=== PATIENT | male | born 1960 | race Caucasian/White ===

== ENCOUNTER 2024-03-18 09:33 | Inpatient (IN) | payer OTHER ==
[2024-03-18] MEDS ORDERED: Haloperidol Lactate Inj. 5 MG/ML Injection IM PRN ×2 (11:10→11:20)
[2024-03-18] MEDS ORDERED: RisperiDONE 1 MG Tab PO PRN (11:10)
[2024-03-18] MEDS ORDERED: Zolpidem Tartrate 5 MG Tab PO PRN (11:10)
[2024-03-18] MEDS ORDERED: DiphenhydrAMINE HCl 50 MG Cap PO PRN (11:15)
[2024-03-18] MEDS ORDERED: Acetaminophen 325 MG TABLET PO PRN (11:15)
[2024-03-18] MEDS ORDERED: DiphenhydrAMINE HCl 50 MG/ML 1ML Vial IM PRN ×2 (11:15)
[2024-03-18] MEDS ORDERED: OLANZapine ODT 10 MG Tab MM PRN ×2 (11:15)
[2024-03-18] MEDS ORDERED: Aluminum Hydroxide 320MG/5ML 473 ML PO PRN (11:15)
[2024-03-18] MEDS ORDERED: Melatonin 3 MG Tab PO PRN (11:20)
[2024-03-18] MEDS ORDERED: LORazepam 2 MG Tab PO PRN ×2 (11:20)
[2024-03-18] MEDS ORDERED: Haloperidol 5 MG Tab PO PRN (11:20)
[2024-03-18] MEDS ORDERED: LORazepam 2 MG/ML 1ML Injection IM PRN ×2 (11:20)
[2024-03-18] MEDS ORDERED: Ibuprofen 600 MG Tab PO PRN (11:20)
[2024-03-18 12:26] VITALS: BP 149/75
[2024-03-18] MEDS ORDERED: TOPIRAMATE ER25 M1 PO (12:32)
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
--- NOTE | 2024-03-18 18:30 | NUR ---
'S PHONE NUMBER GYPSY STANLEY: [phone]
[2024-03-18] MEDS ORDERED: OLANZapine 10 MG Tab PO SCH (21:00)
[2024-03-19 08:53] VITALS: BP 136/68
[2024-03-19] MEDS ORDERED: Folic Acid 1 MG TAB PO SCH (09:00)
[2024-03-19] MEDS ORDERED: Thiamine HCl 100 MG Tab PO SCH (09:00)
[2024-03-19] MEDS ORDERED: Multivitamins 1 Tab PO SCH (09:00)
--- NOTE | 2024-03-19 11:11 | NUR ---
AT 1025 PT COMPLAINED OF BEING MORE ANXIOUS AND FEELS LIKE A MIGRAINE MY BE COMING ON. ASKED FORMEDICATION TO HELP HIM. MASS SCORE OF 13. GIVEN ATIVAN [address] STRONG HERE AND SPOKE WITH PATIENT. ALSO PATIENT USED [employer] BOARD TO SAND DOWN HIS TOENAIL ON LARGE TOE ON RIGHT FOOT. WILL CONTINUE TO MONITOR.
--- NOTE | 2024-03-19 16:07 | NUR ---
PT FELT HE HAD GLASS IN HIS RIGHT FOOT ON THE BOTTOM AREA UNDER THE LAST TO TOES WHEN HE WALKED ON IT. STATED THAT HE HAD WALKED ON GLASS AND HE THINKS THERE IS SOME IN THERE. HE DOES NOT KNOW WHEN HE WAS ON THE GLASS. THERE IS 2 TINY DOTS IN THE AREA THAT LOOK LIKE HE MAY HAVE STEPPED ON SOMETHING LIKE A STAPLE. THERE IS NO REDNESS OR SWELLING PRESENT. GIVEN SOMESLIDES TO WALK WITH. WILL CONTINUE TO MONITOR.
--- NOTE | 2024-03-19 16:45 | NUR ---
SHIFT SUMMARY HAS BEEN UP READING A BOOK OR JOURNALING. NO OTHER COMPLAINTS OF PAIN TO FOOT SINCE RECEIVING SLIDE SHOES. LISTENING TO MUSIC WITH A HEAD SET NOW. MOOD IS CALM AND QUITE. ATIVAN HAS BEEN HELPFUL NO COMPLAINT OF A MIGRAINE. WILL CONTINUE TO MONITOR
--- NOTE | 2024-03-19 18:00 | NUR ---
COMPLAINT OF HEART BURN. GIVEN ALUMINUM HYDROXIDE 15 MLS AND TOLD NOT TO DRINK WATER FOR A HALF HOUR. TO COME FOR VISIT AT ANY TIME. WILL CONTINUE TO MONITOR.
[2024-03-19] MEDS ORDERED: ClonazePAM 0.5 MG Tab PO SCH (21:00)
[2024-03-19] MEDS ORDERED: OLANZapine 10 MG Tab PO SCH (21:00)
--- NOTE | 2024-03-20 04:43 | NUR ---
Patient advised AT 4:40 THAT HE FEELS LIKE HE HAS GLASS IN MULTIPLE SPOTS ON THE LEFT HEEL. I USED A SANITARY WIPE AND FOUND TWO SMALL SPOTS THAT MAY MAVE A SLIVER OR SOMETHING IN IT.
--- NOTE | 2024-03-20 06:22 | NUR ---
JANELLE TOOK A SHOWER AT 6:22 AND WAS PROVIDED TWO TOWELS AND 3XL SHIRT AND 2 XL PANTS.
--- NOTE | 2024-03-20 08:24 | NUR ---
0815 PT CAME TO SAY THAT HE "PEED" BLOOD IN THE TOILET. CHECKED AND BLOOD ON TOILET SEAT AND HAD HIM RE-URINATE SOME MORE IN CLEAR TOILET. IT WAS RED AND HAAD A FOUL ODOR PRESENT. WILL LET DR JARA KNOW ON ROUNDS.DID NOT COMPLAIN OF PAIN.
[2024-03-20 08:40] VITALS: BP 135/71
[2024-03-20] MEDS ORDERED: Thiamine HCl 100 MG Tab PO SCH (09:00)
[2024-03-20] MEDS ORDERED: Folic Acid 1 MG TAB PO SCH (09:00)
[2024-03-20] MEDS ORDERED: Multivitamins 1 Tab PO SCH (09:00)
--- NOTE | 2024-03-20 11:06 | NUR ---
DR NORMAN NOTIFIED OF PATIENTS BLOOD IN THE URINE. ORDER FOR CONSULT WITH HOPITALIST. DR KIRKLAND ON WAY OVER TO SEE THE PATIENT NOW. URINE SAMPLE COLLECTED.
[2024-03-20] MEDS ORDERED: Cephalexin Monohydrate 500 MG Cap PO SCH (12:00)
[2024-03-20 12:01] LABS: Source, Urine Clean Catch
[2024-03-20 12:04] LABS: Bilirubin, Urine Neg (Neg); Blood, Urine 4+ (Neg); Glucose Qualitative, Urine Neg (Neg); Ketones, Urine Neg (Neg); Leukocyte Esterase, Urine 1+ (Neg); Nitrite, Urine Neg (Neg); Protein, Urine 1+ (Neg); Urobilinogen, Urine NORM (Normal)
[2024-03-20 12:44] LABS: Appearance, Urine Hazy (Clear); Color, Urine Yellow (P-Yellow)
[2024-03-20 12:45] LABS: Bacteria Few /hpf; Squamous Epithelial Cells Few /hpf (Few)
[2024-03-20 13:55] LABS: Bun/Creatinine Ratio 14.4 (12.0-20.0); Calcium, Blood 9.4 mg/dL (8.5-10.1); Creatinine, Blood 0.83 mg/dL (0.60-1.20); Potassium, Blood 3.9 mmol/L (3.5-5.5)
--- NOTE | 2024-03-20 14:35 | NUR ---
DR DARNELL NOTIFIED OF URINALIYSIS/UTI. HE SAID HE SEEN THE LAB AND STARTED THE PATIENT ON ANTIBIOTIC. FIRST DOSE OF MED WAS GIVEN.
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
--- NOTE | 2024-03-20 17:05 | NUR ---
PT ABLE TO URINATE AT THIS TIME. GIVEN TYLENOL 650MG PO FOR LOW BACK PAIN TO RIGHT SIDE 02/02. PT HAS SNACKS TO EAT AND SAID HE MAY NOT WANT TO EAT HIS DINNER. TOLD HIM THAT IT IS OK LONG HE EATS SOMETHING. HE WENT INTO THE DINING AREA FOR DINNER.
--- NOTE | 2024-03-20 17:44 | NUR ---
SHIFT SUMMARY PT HAS BEEN UP PACING IN THE HALLS SINCE TAKING TYLENOL, BUT STATES PAIN IS AT 8/10 NOW. PT WANTS TO HAVE DEMEROL. IT WAS EXPLAINED THAT WE DO NOT GIVE THOSE KIND MEDICSATIONS HERE. WAS OFFERED ICE PACK WRAPPED IN A TOWEL. HE ACCEPTED. WILL CONTINUE TO MONITOR. VISIT WITH WENT WELL. DENIES AVH AND SI.
[2024-03-20 20:44] VITALS: BP 111/81
[2024-03-21 08:39] VITALS: BP 135/76
[2024-03-21] MEDS ORDERED: ClonazePAM 0.5 MG Tab PO PRN (08:50)
[2024-03-21] MEDS ORDERED: Polyethylene Glycol 3350 17 gm PO PRN (08:50)
[2024-03-21] MEDS ORDERED: Tamsulosin HCl 0.4 MG Cap PO SCH (09:00)
--- NOTE | 2024-03-21 09:00 | NUR ---
PT REPORTS TO THIS NURSE R SIDED PAIN. PT UNSURE OF BOWEL PAINS R/T NO BM X4 DAYS. PROVIDER ORDERED MIRLAX, GIVEN.
--- NOTE | 2024-03-21 11:35 | NUR ---
SPOKE W/ DR NORMAN AND ADVISED TO CALL DR. DARNELL REGARDING PT R FLANK/ ABD PAIN. DISCUSSED PT CONCERNS W/ DR. DARNELL AND HE INFORMED HE WILL ORDER CT. I INFORMED THAT WE ARE UNABLE TO TRANSPORT PTS TO AND FROM HOSPITAL. DR. DARNELL HAS AGREED TO USE OF MIRLAX IN HOPES OF BM AND IF UNSUCCESSFUL, WE WILL MOVE FORWARD W/ PT SCAN IN ER SERVICES. I HAVE REQUESTED PRUNE JUICE FROM DIETARY AND WILL HAVE [facility] MARKETING CAMPAIGN ANALYST. PT REPORTS IN THE PAST VERY SUCCESSFUL AND RELIEVED TO KNOW ACTIONS WILL HAPPEN.
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
[2024-03-21 19:55] VITALS: BP 152/80
[2024-03-21] MEDS ORDERED: Docusate Sodium/Senna 1 Tab PO SCH (21:00)
--- NOTE | 2024-03-21 22:50 | NUR ---
PATIENT STATES THAT HE HAD A GOOD BOWEL MOVEMENT. NO VISUAL BY STAFF. HE AGREED TO TAKE COLACE AND MIRALAX "TO KEEP IT GOING". ADVISED TO LET STAFF KNOW WHEN HE GOES, OR TO SHOW STAFF.
[2024-03-22 08:17] VITALS: BP 157/84
--- NOTE | 2024-03-22 10:01 | NUR ---
PROVIDER CONSULT DR. NORMAN V/O FOR MEDICAL CONSULT. NEXT IN LINE PER ER; DR. ROSALES PROVIDER CALLED AT THIS TIME AND GIVEN CONSULT/ PT INFORMATION
--- NOTE | 2024-03-22 11:47 | NUR ---
DR. RODRIGUEZ COVERING RECEIVED CALL FROM DR. ROSALES REPORTING THAT DR. RODRIGUEZ IS COVERING THIS PT
--- NOTE | 2024-03-22 11:55 | NUR ---
SPOKE W/ DR. RODRIGUEZ. SHE REPORTS WILL COME ASSESS PT THIS AFTERNOON SINCE NOT ACUTE DISTRESS AT THIS TIME.
[2024-03-22] MEDS ORDERED: OxyCODONE 5 mg/Acetamin 325 mg TABLET PO PRN (12:00)
--- NOTE | 2024-03-22 17:09 | NUR ---
Pt stated that his mood was "good" and presents as euthymic with congruent affect. He denies SI, HI, AVH. Eye contact is good. Pt denies anxiety and endorse rib and back pain that ranged from 3/10w at time of morning assessment to as high as 8/10w in the early afternoon. Pt received PRN APAP and ibuprofen at 1257 which brought the pain level down to 4/10w. Pt was seen by the hospitalist concerning his ongoing pain. Hospitalist ordered Percoset 5/325 q4h PRN for severe pain. Patient spent much of the day in the sensory room with headphones. He did get a visit from his spouse, which seemed to go well.
[2024-03-22 20:27] VITALS: BP 126/72
--- NOTE | 2024-03-23 00:03 | NUR ---
Patient talking to this RN discussing a mindfullness exercise where one part involves audibly voicing your thoughts and beliefs over and over. He states that he thinks this is why he was admitted, because of "talking out loud and hearing voices." When "all I'm doing is voicing my thoughts and beliefs so I can keep things straight."
--- NOTE | 2024-03-23 02:55 | NUR ---
Patient OOB approximately every 30 minutes mumbling about the prior mentioned mindfulness exercise. "That is me. I just voice my thoughts." When encouraged to go back and try to get more sleep, he complained of abdominal and headache pain requiring Tylenol and Ibuprophen. When it was time, this RN agreed to give him the medications, and when the patient was to receive them, he stated he only had pain of a 1-2/10, and that it "rockets up" to a 10 when he gets up to take a walk or use the bathroom. Patient got up and said "ok. Now it's a 10. Medications given per order. Patient was encouraged to stay in bed and try to sleep as he had lots of activities to participate in in the morning. will continue close monitoring.
--- NOTE | 2024-03-23 04:11 | NUR ---
Patient up and down most of night. Finally fell asleep around 0330. Patient c/o abd and headache pain at HS and multiple times through night. Very forgetful as he would repeat the same things multiple times each time he would approach the desk. Please see nurses notes for further information regarding MR Conn's obsession with "mindfullness exercise".
[2024-03-23 09:10] VITALS: BP 129/65
--- NOTE | 2024-03-23 11:28 | NUR ---
Appointments Scheduled Hospital Follow-up Apt Scheduled for SaturdayMarch 25, at [address] Mancini. Requested to send over Discharge Summary as soon as able so Dr can start reviewing them. Scheduled New Patient apt for pt. with Dr. Vasquez on May 02 @ 11:20am Pt will also [facility].
[2024-03-23] MEDS ORDERED: CEPH500 PO (11:35)
[2024-03-23] MEDS ORDERED: MELA3 PO (11:36)
[2024-03-23] MEDS ORDERED: OLAN20 MM (11:37)
[2024-03-23] MEDS ORDERED: TAMS.4ER PO (11:38)
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
--- NOTE | 2024-03-23 13:32 | NUR ---
Pt discharged at 1320 had no belongings to be given. Form signed and patient left with Wes Conn.
== END 2024-03-23 13:17 | disposition home or self-care (01) | DRG 885 ==
LOC: BHU 09:33
PROVIDERS: Internal Medicine; ADMIT Student in an Organized Health Care Education/Training Program
DX: F20.0 Paranoid schizophrenia (principal); N39.0 Urinary tract infection, site not specified; R31.0 Gross hematuria; M79.672 Pain in left foot; M79.671 Pain in right foot; E87.6 Hypokalemia; B96.1 Klebsiella pneumoniae [K. pneumoniae] as the cause of diseases classified elsewhere; R07.81 Pleurodynia; K59.00 Constipation, unspecified; F12.90 Cannabis use, unspecified, uncomplicated; F41.9 Anxiety disorder, unspecified; Z79.899 Other long term (current) drug therapy
CPT/HCPCS: 36415; 80048; 81001; 87077; 87086; 87186; A9270

== ENCOUNTER → 2024-04-19 | Outpatient (CLI) | payer OTHER ==
[~2024-04-19] MED LIST: CEPH500 PO; MELA3 PO; OLAN20 MM; TAMS.4ER PO; TOPIRAMATE ER25 M1 PO
== END | disposition home or self-care (01) ==
LOC: LAB 08:05 → LAB SHORT 08:05
DX: R31.9 Hematuria, unspecified (principal)
CPT/HCPCS: 87077; 87086; 87186

== ENCOUNTER → 2024-10-05 | Outpatient (CLI) | payer OTHER ==
[2024-10-05 13:19] LABS: BASOPHILS ABSOLUTE AUTO 0.04 K/mm3 (0.00-0.23); BASOPHILS PERCENT AUTO 1 % (0-2); EOSINOPHILS ABSOLUTE AUTO 0.19 K/mm3 (0.00-0.68); EOSINOPHILS PERCENT AUTO 3 % (0-6); Hematocrit 46.5 % (37.0-53.0); Hemoglobin 16.1 g/dL (13.5-17.5); IMMATURE GRAN ABSOLUTE AUTO 0.03 K/mm3 (0.00-0.10); IMMATURE GRAN PERCENT AUTO 1 % (0-1); LYMPHOCYTES ABSOLUTE AUTO 2.03 K/mm3 (0.84-5.20); LYMPHOCYTES PERCENT AUTO 32 % (21-46); MONOCYTES ABSOLUTE AUTO 0.45 K/mm3 (0.16-1.47); MONOCYTES PERCENT AUTO 7 % (4-13); Mean Corpuscular HGB 30.3 pg (26.0-34.0); Mean Corpuscular HGB Conc 34.6 g/dL (31.5-36.5); Mean Corpuscular Volume 88 fL (80-100); Mean Platelet Volume 9.9 fL (9.1-12.4); NEUTROPHILS ABSOLUTE AUTO 3.65 K/mm3 (1.96-9.15); NEUTROPHILS PERCENT AUTO 57 % (41-73); Platelet Count 241 K/mm3 (150-400); RDW Coefficient Variation 12.6 % (11.7-14.2); RDW Standard Deviation 40.1 fL (35.1-46.3); Red Blood Cell Count 5.31 M/mm3 (4.30-5.90); White Blood Cell Count 6.39 K/mm3 (4.00-11.30)
[2024-10-05 13:39] LABS: PSA, %Free 15.3 %; PSA, Free 0.331 ng/mL
[2024-10-05 14:09] LABS: Alanine Aminotransfer (ALT/SGP 23 U/L (12-78); Albumin/Globulin Ratio 1.1 (0.8-1.8); Alk Phos 60 U/L (50-136); Anion Gap 10 mmol/L (3-11); Aspartate Aminotrans (AST/SGOT 13 U/L (12-37); Bilirubin, Direct <0.1 mg/dL (0.0-0.3); Bilirubin, Indirect Unable to Calculate mg/dL (0.1-0.7); Bilirubin, Total 0.3 mg/dL (0.1-1.0); Blood Urea Nitrogen 17 mg/dL (8-24); Bun/Creatinine Ratio 22.4 (12.0-20.0); CO2, Blood 22 mmol/L (21-32); Calcium, Blood 9.2 mg/dL (8.5-10.1); Chloride, Blood 111 mmol/L (98-108); Creatinine, Blood 0.76 mg/dL (0.60-1.20); Globulin, Blood 3.6 g/dL (2.2-4.0); Glomerular Filtration Rate 102 (60-); Glucose, Blood 120 mg/dL (70-99); Potassium, Blood 4.1 mmol/L (3.5-5.5); Sodium, Blood 139 mmol/L (136-145); Total Protein, Blood 7.6 g/dL (6.4-8.2)
[2024-10-05 14:11] LABS: CHOL/HDL RATIO 4.4; Cholesterol 237 mg/dL (50-200); HDL Cholesterol 54 mg/dL (>39); Iron Serum 67 ug/dL (65-175); LDL/HDL RATIO 2.8; Low Density Lipoprotein Chol 154 mg/dL (0-110); Percent Saturation 22.8 % (20.0-50.0); Total Iron Binding Capacity 294 ug/dL (250-450); Triglycerides 147 mg/dL (30-160); Very Low Density Lipoprot Chol 29 mg/dL (6-32)
== END | disposition home or self-care (01) ==
LOC: LAB SHORT 10:49 → LAB 10:49
PROVIDERS: Nurse Practitioner Family
DX: N40.1 Benign prostatic hyperplasia with lower urinary tract symptoms (principal); N13.8 Other obstructive and reflux uropathy; R53.83 Other fatigue
CPT/HCPCS: 80053; 80061; 82248; 83036; 83540; 83550; 83880; 84153; 84154; 85025